=== PATIENT | female | born 1990 | race Caucasian/White ===

== ENCOUNTER 2025-03-30 11:08 | Outpatient (AMB) | payer OTHER, SELFPAY ==
[2025-03-30 11:18] VITALS: BP 126/72; PULSE 77; RESP 16; O2SAT 98; BMI 29.9
--- NOTE | 2025-03-30 11:18 | A.OFFVIS_ITS ---
Vital Signs 03/30/25 11:18 Height 4 ft 11 in Weight 148 lb BMI 29.9 BP 126/72 Blood Pressure Location Rt brachial Position Sitting Respiration 16 Pulse 77 Pulse Source Pulse Oximeter Pulse Oximetry (%) 98 Oxygen Delivery Method Room Air Intake Visit Reasons: re-establish care Allergies Penicillins Allergy (Intermediate, Verified 03/30/25 11:18) Hives sulfamethoxazole (From Bactrim) Allergy (Intermediate, Verified 03/30/25 11:18) Hives trimethoprim (From Bactrim) Allergy (Intermediate, Verified 03/30/25 11:18) Hives Medication List - Last Reconciled 03/30/25 by Bre Muhammad, LIUDMILA albuterol sulfate 90 mcg/actuation (Ventolin HFA) 2 puffs inhalation Q4H cetirizine 10 mg PO DAILY magnesium oxide 400 mg PO DAILY prednisone 20 mg PO DAILY riboflavin (vitamin B2) 400 mg PO DAILY rizatriptan mg PO HPI Comments Details: Jennyfer is a 34-year-old female patient with a past medical history of IBS, and bruxism following for chronic mixed headaches. She was my patient at [facility] who I was treating for mixed headaches. She did very well with trigger point injections. She is here today at [facility] to reestablish care. She has continued with physical therapy and magnesium and riboflavin supplementation. Are last set of trigger point injections was back in early January. She had done okay up until early March when she started to develop more severe headaches including migraines with aura. She reports that approximately 2 weeks ago which was the week before her menstrual cycle, she had 3 migraines with aura. Unfortunately, these migraines were not well responsive to the rizatriptan which has worked well in the past. Since this time, she has had at least 15 migraine these over the last month accompanied by light and sound sensitivity has pain predominantly to the right retro-orbital area and occipital area radiating into her neck. She also has tightness sensation to the left side of her head and neck area. She believes that the only change was the long period of time without trigger point injections. Aside from his, stress levels and other aspects of health have remain the same. She does note that she would like to begin planning for in the next coming months. She however is not currently . She had her last men strual cycle about 1 week ago. [facility] Medical History (Updated 03/30/25 @ 11:58 by Bre Muhammad CNP) Migraine Review of Systems Const All systems reviewed & are unremarkable except as noted in HPI and below Physical Exam Vital Signs: Last Vital Signs Pulse 77 03/30/25 11:18 Resp 16 03/30/25 11:18 BP 126/72 03/30/25 11:18 Pulse Ox 98 03/30/25 11:18 Oxygen Delivery Method Room Air 03/30/25 11:18 BMI result Body Mass Index 29.9 Const General: cooperative, healthy appearing, comfortable and no acute distress Nutritional Appearance: well nourished Orientation/consciousness: patient oriented x3 Limitations: no limitations HEENT Head: Yes normal to inspection and Yes normocephalic Eyes General: appearance normal, both eyes and all related structures Visual Davidson: normal visual davidson by confrontation Alignment and Position: alignment normal Periorbital: periorbital findings normal Eyelids: Yes eyelids normal Conjunctivae: conjunctivae normal Sclerae: sclerae normal Back/Spine/Pelvis Other: Bilateral trapezius trigger points and generalized tenderness over the trapezius muscles Neuro General: patient oriented x3 and deep tendon reflexes 2+ bilaterally Cranial nerves: Yes CN's II-XII intact bilaterally and Yes Facial sensation intact/muscles of mastication intact (Tenderness over the bilateral temporalis muscles) Cognition (Neuro): normal cognition Gait exam (Neuro): Normal gait present Motor exam (neuro): 5/5 motor strength present throughout and no tremor noted Sensory Exam: double simultaneous stimulation for sensation normal Romberg Test: Negative Pupils: Normal pupillary reactivity/response: bilateral Psych Appearance: grossly normal Mental Status: mental status grossly normal Speech and movement: Normal speech and movement present and Clear speech present Affect: normal affect Attitude: cooperative Thought process: Normal thought process present Thought content: Normal thought content present Insight: Good insight present (Psych) Judgement: Good judgement present (Psych) Office Procedures Therapeutic Injection Therapeutic Injection Details: Trigger point injection procedure: Laterally:Bilateral Indications: Chronic headaches, myofascial pain Following universal hygiene protocol, after explaining the risks and benefits as well as hazards of the procedure to the patient, consent was signed and placed in the chart. Time-out prior to starting the procedure was performed. The areas over the bilateral trapezius muscles and bilateral were cleansed with alcohol. Four sites in each temporalis muscle 2 sites in each trapezius muscle injected with a 27 gauge 1.5 in needle with myofascial spasm. Patient tolerated the procedure well, localized bleeding was controlled. Patient monitored in the clinic for 15 minutes for complications. Patient was discharged home with instr uctions to apply ice to the back of their head as needed. [id number] Point Injection 3 or more All charges added?: Procedure code (CPT) selection complete Office Meds bupivacaine (PF) 0.5 % (5 mg/mL) injection solution Performing Provider: Bre Muhammad CNP Performing Location: [facility] Neurology and [facility] Administered by: Bre Muhammad CNP on 03/30/25 12:00 Dose Route Admin Location Dispensed Lot Number Expiration Date [facility] Volcanologist 5 mL Infiltration 10 mL [id number] XELLIA PHARMACE Total Dispensed Waste 10 mL 50 % Assessment & Plan Assessment & Plan (1) Muscle pain, myofascial: Code(s): M79.18 - Myalgia, other site Category: Medical (2) Trigger point of shoulder region: Code(s): M25.519 - Pain in unspecified shoulder Category: Medical (3) Bruxism: Code(s): F45.8 - Other somatoform disorders Category: Medical (4) Migraine with aura and without status migrainosus, not intractable: Code(s): G43.109 - Migraine with aura, not intractable, without status migrainosus Category: Medical Plan Jennyfer is a 34-year-old female patient with a past medical history of IBS following for chronic mixed headaches. Headaches are likely tension based th ough she does have migraine with aura as well. She also conscious significantly which likely plays a role. She has responded well to a combination of magnesium, riboflavin, and trigger point injections in the past. Unfortunately, she has had a gap in her trigger point therapy and most recently had a significant uptake in her migraines and tension-type headaches. We did perform trigger point injections today to the bilateral trapezius areas as well as the temporalis muscles bilaterally. We can continue this therapy throughout if she wishes to do so. She is also on magnesium and riboflavin which is safe for and we discussed limiting the use of Triptan during though most evidence supports safety and use during . -trigger point injections performed in office today -continue magnesium and riboflavin supplementation -prednisone given over 5 days for acute increase in headaches -can continue rizatriptan as needed for acute therapy -follow up in 1 month or sooner if needed Orders: Orders AMB Trigger Point Injection Today F45.8 - Other somatoform disorders, G43.109 - Migraine with aura, not intractable, without status migrainosus, M25.519 - Pain in unspecified shoulder, M79.18 - Myalgia, other site Medications: New prednisone Day 1: Take 3 tablets by mouth in the morning Day 2: Take 2 tablets by mouth in the morning Day 3: Take 1 tablet by mouth in the morning Day 4: Take 1/2 tablet by mouth in the morning Day 5: Take 1/2 tablet by mouth in the morning 20 mg PO DAILY 7 tabs 0RF Coding Level of Care Code Est Pt Level 4 (59946) Diagnoses Muscle pain, myofascial M79.18 Trigger point of shoulder region M25.519 Bruxism F45.8 Migraine with aura and without status migrainosus, not intractable G43.109 CPT Codes Therapeutic Injection - Ther Injection 2: [id number] Point Injection 3 or more ([id number])
--- OUTSIDE RECORDS SUMMARY | 2025-03-30 14:11 | XMS_ITS | Clinical Summary ---
Author Organization [facility] Address [address] [place] [id number] Phone Care Team Providers Care Oracle Agile Plm Consultant Name Role Phone Unavailable Primary Care Provider Unavailabl e Social History Tobacco Use Types Packs/Day Years Used Date Smoking Tobacco: Never Assessed Comments Unknown Sex and Gender Information Value Date Recorded Sex Assigned at Not on file Legal Sex Female 6:12 PM EDT Gender Identity Not on file Sexual Orientation Not on file Plan of Treatment Health Maintenance Due Date Last Done Comments MMR Vaccines (1 of 1 - Stand tara series) 1989 Varicella Vaccines (1 of 2 - 13+ 2-dose series) 2001 DTaP,Tdap,and Td Vaccines (1 - Tdap) 2006 Hepatitis B Vaccines (1 of 3 - 19+ 3-dose series) 11/09/2007 HPV Vaccines (1 - 3-dose SCD M series) 11/09/2015 Influenza Vaccines (#1) 2025 COVID-19 Vaccine ( - 2024-2 6 season) 2025 HIB Vaccines Aged Out No longer eligi ble based on patient's age to complete this topic Hepatitis A Vaccines Aged Out No long er eligible based on patient's age to complete this topic IPV Vaccines Aged Out No longer eligi ble based on patient's age to complete this topic Men B Vaccine Aged Out No longer elig ible based on patient's age to complete this topic Meningococcal Vaccine Aged Out No kiet talya eligible based on patient's age to complete this topic Pneumococcal Vaccine Aged Out No long er eligible based on patient's age to complete this topic
--- OUTSIDE RECORDS SUMMARY | 2025-03-30 14:11 | XMS_ITS ---
Author Name [facility] Organization Unknown History of Medication Use Medication Directions Dispensed Refills Start Date End Date Stat us cefdinir (OMNICEF) 300 MG capsule Take 1 capsule (300 mg total) by mouth 2 (two) times a day. 07/05/2023 07/13/2023 active guaiFENesin (MUCINEX) 600 MG 12 hr tablet Take 2 tablets (1,200 mg total) by mouth 2 (two) times a day. 07/05/2023 07/13/2023 active fluticasone (FloNASE) 50 mcg/spray nasal spray 1 spray into each nostril daily. 07/05/2023 active lidocaine (XYLOCAINE) 2 % solution Take 5 mL by mouth 4 (four) times a day as needed for mild pain. Swish and spit. 07/05/2023 active cefpodoxime (VANTIN) 200 MG tablet Take 1 tablet (200 mg total) by mouth 2 (two) times a day. 05/23/2023 05/31/2023 active riboflavin (VITAMIN B-2) 100 MG tablet TAKE 2 TABLETS BY MOUTH 2 TIMES A DAY WITH MEALS,X30 DAYS 05/10/2023 active magnesium oxide 400 (240 Mg) MG Tab tablet Take 400 mg by mouth daily. 05/04/2023 active naratriptan (AMERGE) 2.5 MG tablet PLEASE SEE ATTACHED FOR DETAILED DIRECTIONS 05/04/2023 active penicillin V potassium (VEETID) 250 MG/5ML solution Take by mouth 4 (four) times a day. 07/05/2023 active sulfamethoxazole-tr imethoprim (BACTRIM) suspension Take by mouth 2 (two) times a day. 07/05/2023 aborted Allergies Allergen Reaction Severity Comment Documented Date Source Statu s SULFAMETHOXAZOLE-TRIME THOPRIM RASH/DERMATITIS 12/29/2019 [facility] active PENICILLINS HIVES [facility] Problems Problem Status Onset Date Problem Type Date of Resoluti on Source Flu-like symptoms active [facility] Sore throat active [facility]Diagn[facility]Act [facility] Congestion of paranasal sinus active EncounterDiagnosisAct [facility] IBS (irritable bowel syndrome) active 2023-07-05 ProblemAct [facility] Encounters Encounter Type Encounter Reason Primary Diagnosis Location Date Ambulatory Acute pharyngitis, unspecified Acute pharyngitis, unspecified [facility] 07/05/2023 Ambulatory Acute sinusitis, unspecified Acute sinusitis, unspecified [facility] 05/23/2023 Ambulatory Acute pharyngiti s, unspecified [facility] 09/28/2022 Care Team Organization Name Specialty Phone Email Start Date End Da te [facility] PCP,No Primary Care 05/23/2023 08/20/2024 [facility] 09/28/2022 08/20/2024 [facility] NO PCP Primary Care 09/28/2022 09/28/2022 [facility] Mckenzie Phelps MD Primary Care 04/11/2022 01/21/2024
--- OUTSIDE RECORDS SUMMARY | 2025-03-30 14:11 | XMS_ITS | Clinical Summary ---
Author Organization [facility] Address [address] [place], [place] [id number] Care Team Providers Care Embroidery Designer Name Role Phone Pcp, No Primary Care Provider Unavailabl e Allergies Active Allergy Reactions Criticality Noted Date Comments Penicillins Hives Medium 12/29/2019 Sulfamethoxazole-Trimethoprim Rash/Dermatitis Low 0 12/29/2019 Medications magnesium oxide 400 (240 Mg) MG Tab tablet Take 400 mg by mouth daily. 3 Active naratriptan (AMERGE) 2.5 MG tablet PLEASE SEE ATTACHED FOR DETAILED DIRECTIONS 3 Active riboflavin (VITAMIN B-2) 100 MG tablet TAKE 2 TABLETS BY MOUTH 2 TIMES A DAY WITH MEALS,X30 DAYS 3 Active lidocaine (XYLOCAINE) 2 % solutionIndicat ions:Sore throat Take 5 mL by mouth 4 (four) times a day as needed for mild pain. Swish and spit. 100 mL 4 Active guaiFENesin (MUCINEX) 600 MG 12 hr tabletIndicatio ns:Congestion of paranasal sinus Take 2 tablets (1,200 mg total) by mouth 2 (two) times a day. 28 tablet 4 Active fluticasone (FloNASE) 50 mcg/spray nasal sprayIndication s:Congestion of paranasal sinus 1 spray into each nostril daily. 1 each 4 Active Active Problems Problem Noted Date Diagnosed Date IBS (irritable bowel syndrome) 07/05/2023 0 07/05/2023 Family History Medical History Relation Name Comments No Known Problems Father No Known Problems Mother Relation Name Status Comments Father Mother Social History Tobacco Use Types Packs/Day Years Used Date Smoking Tobacco: Never Passive Smoke Exposure: Never Smokeless Tobacco: Never Tobacco Cessation:Counseling Given: Not Answered Alcohol Use Standard Drinks/Week Comments Never 0 (1 standard drink = 0.6 oz pur e alcohol) Comments No Sex and Gender Information Value Date Recorded Sex Assigned at Not on file Legal Sex Female 7:03 PM EST Gender Identity Not on file Sexual Orientation Not on file Last Filed Vital Signs Vital Sign Reading Time Taken Comments Blood Pressure 126/80 07/05/2023 9:13 AM EST Pulse 119 07/05/2023 9:13 AM EST Temperature 36.9 C (98.4 F) 07/05/2023 9:13 AM EST Respiratory Rate 18 07/05/2023 9:13 AM EST Oxygen Saturation 99% 07/05/2023 9:13 AM EST Inhaled Oxygen Concentration - - Weight 59 kg (130 lb) 07/05/2023 9:13 AM EST Height 152.4 cm (5') 07/05/2023 9:13 AM EST Body Mass Index 25.39 07/05/2023 9:13 AM EST Plan of Treatment Health Maintenance Due Date Last Done Comments Hepatitis C Virus Screening 1988 HIV Screening 2001 DTaP/Tdap/Td Vaccines (1 - Tdap) 11/09/2007 Hepatitis B Vaccines (1 of 3 - 19+ 3-dose series) 11/09/2007 Pap Smear (Ages 21-65) 2009 Influenza Vaccine 01/02/2025 COVID-19 Vaccine (1 - 2023-2 5 season) 2025 HPV Vaccines (No Doses Required) Completed Pneumococcal Vaccine: Pediat marisela (0-5 Years) and At-Risk Patients (6 to 49 Years) Aged Out No longer eligible b ased on patient's age to complete this topic Insurance [facility] [employer] Care Teams Embroidery Designer Relationship Specialty Start Date End Date Pcp, [address] [place] [address] PCP - General 08/28/22
--- OUTSIDE RECORDS SUMMARY | 2025-03-30 14:11 | XMS_ITS | Clinical Summary ---
Author Organization [facility] Address [address] [place] [id number] Care Team Providers Care Central Office Repairer Supervisor Name Role Phone Shanique Murillo MD Primary Care Provider Unavailabl e Allergies Active Allergy Reactions Criticality Noted Date Comments Sulfamethoxazole-Trimethoprim 2019 Penicillins 12/29/2019 Medications Medication Sig Dispensed Refills Start Date End Date Status Fluticasone Propionate, Inhal, (FLOVENT DISKUS) 100 MCG/BLIST AEPB Inhale into the lungs. 0 Active albuterol (2.5 MG/3ML) 0.083% NEBU 3 mL, albuterol (5 MG/ML) 0.5% NEBU 0.5 mL Inhale into the lungs. 0 Active Riboflavin 400 MG CAPS Take by mouth. 0 Active Riboflavin 25 MG TABS Take by mouth. 0 Active gabapentin (NEURONTIN) 100 MG capsule Take 400 mg by mouth 3 (three) times a day. 0 Active oxyCODONE (ROXICODONE) 5 MG immediate release tablet Take 1 tablet (5 mg total) by mouth every 6 (six) hours as needed for pain. Do not take until after surgery 20 tablet 0 02/16/2020 Active clindamycin (CLEOCIN) 300 MG capsule Take 1 capsule (300 mg total) by mouth 3 (three) times a day. 3 capsule 0 03/04/2020 Active Family History Medical History Relation Name Comments Clotting disorder Mother Relation Name Status Comments Mother Social History Tobacco Use Types Packs/Day Years Used Date Smoking Tobacco: Never Smokeless Tobacco: Never Alcohol Use Standard Drinks/Week Comments No 0 (1 standard drink = 0.6 oz pur e alcohol) Sex and Gender Information Value Date Recorded Sex Assigned at Not on file Gender Identity Not on file Sexual Orientation Not on file Last Filed Vital Signs Vital Sign Reading Time Taken Comments Blood Pressure - - Pulse - - Temperature - - Respiratory Rate - - Oxygen Saturation - - Inhaled Oxygen Concentration - - Weight 52.2 kg (115 lb) 12/29/2019 11:21 AM EDT Height 149.9 cm (4' 11 ) 12/29/2019 11:21 AM EDT Body Mass Index 23.23 12/29/2019 11:21 AM EDT Plan of Treatment Health Maintenance Due Date Last Done Comments Hepatitis B Vaccines (1 of 3 - 3-dose series) 1988 Hepatitis C Screening 1988 COVID-19 Vaccine (#1) 05/10/1989 Depression Screening 2000 Preventative Health Evaluation 2006 DTap / Tdap / Td (1 - Tdap) 11/09/2007 Cervical Cancer Screening (P ap Smear) 2009 Influenza Vaccine (#1) 2025 Pneumococcal Vaccine Aged Out No long er eligible based on patient's age to complete this topic RSV Ped < 20 months Aged Out No longe r eligible based on patient's age to complete this topic Care Teams Central Office Repairer Supervisor Relationship Specialty Start Date End Date Shanique Murillo MD PCP - General Internal Medicine 07/21/19
--- OUTSIDE RECORDS SUMMARY | 2025-03-30 14:11 | XMS_ITS | Clinical Summary ---
Author Organization [facility] [address] [facility] [address] Address [address] [place] [address] Phone Care Team Providers Care Slipman Name Role Phone Lena Lopez MD Primary Care Provider [phone] Allergies Active Allergy Reactions Criticality Noted Date Comments Lactose 03/09/2021 Penicillins Rash 09/06/2006 also gets severe yeast infections Pollen Extracts 04/26/2020 Sulfamethoxazole-Trimethopr im Hives 02/25/2019 Bactrim [Na Benzoate-sulfamethoxazole -trimethoprim] Yeast infection Medications cetirizine HCl (CETIRIZINE ORAL) Take 1 Tab by mouth daily. Active EPINEPHrine (EpiPen 2-Charles) 0.3 mg/0.3 mL injection 3 Active fluticasone propionate (FLONASE) 50 mcg/actuation nasal spray 2 Sprays by Nasal route daily. 0 Active magnesium oxide (MAG-OX) 400 mg (241.3 elemental magnesium) tablet TAKE 1 TABLET BY MOUTH EVERY DAY X30 DAYS 3 Active albuterol HFA (PROAIR HFA ; PROVENTIL HFA ; VENTOLIN HFA) 90 mcg/actuation inhalerIndicatio ns:Mild persistent asthma, unspecified whether complicated Inhale 2 Puffs into the lungs every 4 hours as needed for Shortness of Breath for up to 180 days. 20.1 g 1 5 Active Active Problems Problem Noted Date Diagnosed Date Migraine with aura 03/10/2024 Chronic mixed headache syndrome 12/30/2020 Overview (03/10/2024): [facility] [place] spotted fever 12/03/2020 Insomnia 04/26/2020 Lactose intolerance 02/13/2020 Overview (03/10/2024): Vomiting & diarrhea Vitamin B12 deficiency 02/13/2020 Anxiety 10/06/2019 Nephrolithiasis 02/12/2018 Colitis 02/19/2014 Overview (03/10/2024): hosp 02/15. GI presumed infectious Depression 01/13/2009 Allergic rhinitis 02/17/2008 Asthma 02/17/2008 Overview (03/10/2024): Aggravated by allergies. GERD (gastroesophageal reflux disease) 8 Overview (03/10/2024): Has tried dietary changes, Tums, and Pepcid with little relief, will start on Prilosec Hypercholesteremia 02/17/2008 IBS (irritable bowel syndrome) 02/17/2008 Overview (03/10/2024): With diarrhea,Sees Dr Vargas Immunizations Immunization Administration Dates Next Due GIgZ-XEQ-AAL (Pentacel) 2mo to less than 5yo 03/04/1990 Hepatitis B (Axvxtsy-I-Astkx , Recombivax HB-Adult) 19yo and older 09/24/2000,04/30/2000,04/03/2000 Influenza Quadravalent, MDCK , 0.5ml, preservative free (Flucelvax) 6mo and older 03/31/2021,02/25/2020,06/11/2019 Influenza trivalent, 0.5mL, preservative free (Fluarix; FluLaval; Fluzone) ages 6mo and older (Afluria) 3 years and older 04/20/2011 Influenza trivalent, with pr eservative (Fluzone; Afluria) 6mo and older 04/18/2013,03/13/2012 MMR, measles mumps and rubel la Live (Priorix; M-M-R II) 12mo and older 02/03/2000,03/04/1989 OPV 11/02/1993, 1,03/10/1989,01/10 Pfizer SARS-CoV-2 COVID-19, mRNA, LNP-S, preservative free 07/01/2021,10/16/2020,09/25/2020,07/01 Pneumococcal conjugate 20 va lent (Prevnar 20, PCV 20) 2mo and older 01/26/2023 Rabies Vaccine, For Intramus cular Injection Retired Code 05/08/2014,11/02/2006,10/09/2006,10/02 Td Tetanus diptheria (Tdvax) 7yo and older 02/03/2000 Tdap Tetanus diptheria acell ular pertussis (Boostrix; Adacel) 7yo and older 07/18/2021,12/10/2015,07/15/2012,04/09 Varicella live (Varivax) 12m o and older 02/03/2000 Surgical History Surgery Date Site/Laterality Comments FLEXIBLE SIGMOIDOSCOPY 08/18/10 PROCEDURE: WA SIGMOIDOSCOPY FLX DX W/COLLJ SPEC BR/WA IF PFRMD; COMMENT: bleeding from anal irritation OTHER SURGICAL HISTORY 05/06/2011 PROCEDURE: WA DILATION & CURETTAGE DX&/THER NONOBSTETRIC; COMMENT: In management of missed performed by Dr. Higginbotham. APPENDECTOMY 07/12 PROCEDURE: HISTORICAL APPENDECTOMY COLONOSCOPY PROCEDURE: HISTORICAL COLONOSCOPY UPPER GASTROINTESTINAL ENDOSCOPY PROCEDURE: WA UPPER GI ENDOSCOPY PERFORMED CYSTOSCOPY PROCEDURE: HISTORICAL CYSTOSCOPY; COMMENT: with kidney stone extraction OTHER SURGICAL HISTORY 2018 PROCEDURE: HISTORY OTHER; COMMENT: repair deviated septum OTHER SURGICAL HISTORY 03/29/2020 Right PROCEDURE: WA SURGICAL ARTHROSCOPY SHOULDER CAPSULORRHAPHY Medical History Medical History Date Comments GERD (gastroesophageal reflux disease) 02/17/2008 DX:GERD (gastroesophageal reflux disease) Allergic rhinitis 02/17/2008 DX:Allergic rh initis Ureteral stone 11/11/2012 DX:Ureteral ston e Migraine with aura DX:Migraine w ith aura Anxiety 10/06/2019 DX:Anxiety Depression 01/13/2009 DX:Depression Hypercholesteremia 02/17/2008 DX:Hyperchole steremia Nephrolithiasis 02/12/2018 DX:Nephrolithias is Vitamin B12 deficiency 02/13/2020 DX:Vitami n B12 deficiency Colitis 02/19/2014 DX:Colitis; COMM ENT: hosp 02/15. GI presumed infectious Asthma 02/17/2008 DX:Asthma; COMME NT: Aggravated by allergies. IBS (irritable bowel syndrome) 02/17/2008 D X:IBS (irritable bowel syndrome); COMMENT: With diarrhea,Sees Dr Vargas Insomnia 04/26/2020 DX:Insomnia Small intestinal bacterial overgrowth 04/26/2020 DX:Small intestinal bacterial overgrowth; COMMENT: was treated in her teens Lactose intolerance 02/13/2020 DX:Lactose i ntolerance; COMMENT: Vomiting & diarrhea Chronic mixed headache syndrome 12/30/2020 DX:Chronic mixed headache syndrome; COMMENT: [facility] Family History Medical History Relation Name Comments Asthma Brother Other: Other Brother Other: SVT Brother Emphysema Father Depression Mother Anemia, Psorias is Diabetes Paternal Grandfather [place] Stroke Paternal Grandmother Hyperte nsion,skin cancer Lung cancer Uncle 1 Prostate cancer Uncle 2 Breast cancer Neg Hx Ovarian cancer Neg Hx Pancreatic cancer Neg Hx Prostate cancer Neg Hx Uterine cancer Neg Hx Relation Name Status Comments Brother Alive Father Alive Maternal Grandfather Alive Maternal Grandmother Alive Mother Alive Paternal Grandfather heart d isease Paternal Grandmother Alive Uncle 1 Uncle 2 Social History Tobacco Use Types Packs/Day Years Used Date Smoking Tobacco: Never Smokeless Tobacco: Never Alcohol Use Standard Drinks/Week Comments Not Currently 0 (1 standard drink = 0.6 oz pur e alcohol) Housing Instability Answer Date Recorde d Are you worried that in the next 2 months you may not have stable housing? No 04/17/2024 Food Access & Nutrition Answer Date Rec orded Do you have access to a vari ety of food including fruits and vegetables? Yes 04/17/2024 Access to Healthcare Answer Date Record ed Within the last 3 months, ho w many times did you visit the emergency department for your medical care? 0 04/17/2024 Health Literacy Answer Date Recorded How often do you need to hav e someone help you when you read instructions, pamphlets, or other written material from your doctor or pharmacy? Never 04/17/2024 Caregiver: How often do you need to have someone help you when you read instructions, pamphlets, or other written material from your doctor or pharmacy? Not on file 04/17/2024 Financial Risk Answer Date Recorded How hard is it for you to pa y for the very basics like food, housing, medical care, and air conditioning / heating? Somewhat hard 04/17/2024 Transportation Answer Date Recorded Has the lack of transportati on kept you from meetings, work, or from getting things needed for daily living? No Has the lack of transportati on kept you from medical appointments or from getting medications? No 04/17/2024 Social Isolation Answer Date Recorded How often do you feel lonely or isolated from th ose around you? Rarely 04/17/2024 Food Risk Answer Date Recorded Within the past 12 months we worried whether our food would run out before we got money to buy more. Never true 04/17/2024 Within the past 12 months th e food we bought just didn't last and we didn't have money to get more. Never true 04/17/2024 Dependent Care Answer Date Recorded Do you need help finding or paying for care for your loved ones. For example, child welfare social worker or elderly care for an older adult? No 04/17/2024 Education Answer Date Recorded Do you think completing more education or training, like finishing a GED, going to college, or learning a trade, would be helpful for you? No 04/17/2024 Employment and Income Answer Date Recor ded During the last four weeks, have you been actively looking for work? No 04/17/2024 Living Situation Answer Date Recorded What is your living situation? Unrecognized valu e 04/17/2024 Comments No Sex and Gender Information Value Date Recorded Sex Assigned at Not on file Legal Sex Female 4:15 AM EST Gender Identity Not on file Sexual Orientation Not on file Obstetrics History * This document contains information received from the source organization and may not represent a complete record from that organization. Para Term AB IAB SAB Ectopic Multiple Livin g Live Births 4 3 3 2 2 Date Outcome GA Total Labor Labor/2nd/3rd Weight Sex Type Anes PTL Aure A1 A5 Name Clin 2010 2012 Term 39w 0d 2665 g (94 oz) F Vag-S pont None Livin g Addiso n Adrie nne Delivery Location:[facility] 2015 Term 40w 0d 3884 g (137 oz) F Vag-S pont Epidjignesh al Livin g 8 9 Manohar Velazquez [facility] [place] Delivery Location:[facility] Comments:System Genera ann-marie. Please review and update details. 2021 Term 38w 5d M Vag-S pont Epidjignesh al Kolby Flores r CNM Delivery Location:[facility] Last Filed Vital Signs Vital Sign Reading Time Taken Comments Blood Pressure 115/72 04/18/2024 9:55 AM EST Pulse 78 04/18/2024 9:55 AM EST Temperature - - Respiratory Rate - - Oxygen Saturation - - Inhaled Oxygen Concentration - - Weight 66.7 kg (147 lb) 11/17/2024 9:47 AM EDT Height 149 cm (4' 10.66 ) 11/17/2024 9:47 AM EDT Body Mass Index 30.04 11/17/2024 9:47 AM EDT Plan of Treatment Upcoming Encounters Date Type Department Care Team ([facility] st Contact Info) Description 05/11/2025 9:15 AM EST Office Visit Internal Medicine - [address] [place] [id number] Lena Lopez MD [address] [place] [phone] Health Maintenance Due Date Last Done Comments HPV Vaccines (1 - 3-dose SCDM series) 11/09/2015 Depression Screening 06/04/2024 COVID-19 Vaccine ( season) 2025 07/01/2021, 10/16/2020, 09/25/2020, Additional history exists Influenza Vaccine (#1) 2025 , 03/31/2021, 02/25/2020, Additional history exists Social Influencers of Health Screening 04/17/2025 04/17/2024 Cervical Cancer Screening: HPV 10/21/2025 10/21/2020 Cervical Cancer Screening: Pap Smear 10/21/2025 10/21/2020, 10/21/2020, 10/21/2020, Additional history exists Cholesterol Screening (Lipid Panel) 01/27/2028 01/26/2023 DTaP,Tdap,and Td Vaccines (7 - Td or Tdap) 07/18/2031 07/18/2021, 12/10/2015, 07/15/2012, Additional history exists RSV Immunization Adult Patients (1 - 1-dose 75+ series) 11/09/2063 HIB Vaccines Completed 03/04/1990, 03/04/1990 IPV Vaccines Completed 11/02/1993, 07/06, 03/04/1990, Additional history exists Hepatitis B Vaccines Completed 09/24/2000, 04/30/2000, 04/03/2000 MMR Vaccines Completed 01/14/2016, 06/1999, 03/04/1989 HIV Screening Completed 03/28/2021 Hepatitis C Screening Completed 03/28/2021 Varicella Vaccines Aged Out 09/29/2021, 0 01/14/2016, 02/03/2000 No longer eligible based on patient's age to complete this topic Pneumococcal Vaccine: Pediatrics (0 to 5 Years) and At-Risk Patients (6 to 49 Years) Completed 01/26/2023 Hepatitis A Vaccines Aged Out No long er eligible based on patient's age to complete this topic Meningococcal ACWY Vaccine Aged Out N o longer eligible based on patient's age to complete this topic Meningococcal B Vaccine Aged Out No l onger eligible based on patient's age to complete this topic RSV Immunization Patients Under 20 months Aged Out No longer eligible based on patient's age to complete this topic Procedures Procedure Name Priority Date/Time Associated Diagnosis Comments LIPID PANEL Routine 01/26/2023 HEPATITIS C SCREENING Routine 03/28/2021 HIV SCREENING Routine 03/28/2021 HPV Routine 10/21/2020 PAP SMEAR Routine 10/21/2020 from Last 3 Months or Most Recently Relevant to Health Maintenance Results * (ABNORMAL) Lipid panel (01/26/2023) LDL/HDL Ratio 3 0 - 4 Triglycerides 53 0 - 150 mg/dL Cholesterol 193 0 - 200 mg/dL HDL 75 >=40 mg/dL LDL Cholesterol 108(A) 0 - 100 mg/dL Blood Venous blood specimen / Unknown [facility] Provider MD LAB BLOOD ORDERABLES Pattie l Result * HIV Screening (03/28/2021) Pathologist [facility] HIV Screening abstracted [facility] Provider [place] HEALTH MAINTENANCE Final Result * Hepatitis C Screening (03/28/2021) Pathologist [facility] Hepatitis C Screening abstracted [facility] Provider HEALTH MAINTENANCE Final Result * Cervical Cancer Screening: HPV (10/21/2020) [facility] Cervical Cancer Screening: HPV normal, abstracted Result [facility] Provider HEALTH MAINTENANCE Final Result * Pap smear (10/21/2020) 10/21/2020 Narrative HISTORICAL TESTING LAB RESULTING AGENCY - 11/03/2020 2:30 PM EDT [id number] THINPREP PAP, IMAGED: NEGATIVE FOR SQUAMOUS INTRAEPITHELIAL LESION AND MALIGNANCY . ENDOMETRIAL CELLS ARE PRESENT. BRANDYN GOODMAN , CT(ASCP) (CASE SCREENED 10 26 2020) YADIRA WITT M.D. , PATHOLOGIST (CASE ELECTRONICALLY SIGNED 10 28 2020) RESULT OF APTIMA HIGH RISK HPV ASSAY: HIGH RISK HPV: NEGATIVE (SEROTYPES 16,18,31,33,35,39,45,51,52,56,58,59,66,68) COMPLETED ON 2020-10-26 ADEQUACY: SATISFACTORY ENDOCERVICAL/TRANSFORMATION ZONE COMPONENT PRESENT. SOURCE: THINPREP PAP HPV ANY DX: REFLEX 16 AND 18, CERVICAL, IMAGED CLINICAL INFORMATION: HPV ANY DIAGNOSIS. PAP HX NEG 11/21/17, LMP 09/28/20 [Z12.4, Z01.419] us Howie Garcia CNM LAB CYTOLOGY ORDERABLES Final Result HISTORICAL TESTING LAB RESULTING AGENCY from Last 3 Months or Most Recently Relevant to Health Maintenance Insurance [facility] [employer] Care Teams Slipman Relationship Specialty Start Date End Date Lena Lopez MD [address] [place] [phone] PCP - General Internal Medicine 01/09/25
== END 2025-03-30 11:45 | disposition home or self-care (01) ==
LOC: HO.HSM 11:08
PROVIDERS: PCP Internal Medicine; Visit Provider Nurse Practitioner
DX: M79.18 Myalgia, other site (principal); M25.519 Pain in unspecified shoulder; F45.8 Other somatoform disorders; G43.109 Migraine with aura, not intractable, without status migrainosus
CPT/HCPCS: 20553; 99214

== ENCOUNTER → 2025-03-30 11:08 | Outpatient (BNVA) | payer OTHER, SELFPAY | PROVIDERS: PCP Internal Medicine; Visit Provider Nurse Practitioner | DX: M79.18 Myalgia, other site (principal); M25.511 Pain in right shoulder; M25.512 Pain in left shoulder; G43.109 Migraine with aura, not intractable, without status migrainosus; Z76.89 Persons encountering health services in other specified circumstances | CPT/HCPCS: 20553; 99212; J0665 ==